=== PATIENT | male | born 1945 | race Caucasian/White ===

== ENCOUNTER → 2019-08-08 14:13 | Outpatient (CLI) | payer MEDICARE ==
[~2019-08-08 14:13] MED LIST: HYDROXYCHLOROQUINE; TRIAMTERENE-HC1 EAC6 PO; VERIPRED 220 MG/5 ML PO; [UNRECOGNIZED DRUG - OTHER]
[2019-08-16 08:22] VITALS: BMI 27.0
== END | disposition home or self-care (01) ==
LOC: D.RAD 14:13
PROVIDERS: ATTEND Internal Medicine Hematology & Oncology
DX: D47.2 Monoclonal gammopathy (principal)

== ENCOUNTER 2019-08-16 06:14 | Outpatient (CLI) | payer MEDICARE ==
[~2019-08-16] VITALS: Ht 175.3 cm; Wt 83.2 kg
[2019-08-16 06:53] LABS: BASOPHILS 0.4 % (0-2); EOSINOPHILS 6.1 % (0-7); HEMATOCRIT 41.5 % (42.0-54.0); HEMOGLOBIN 14.1 g/dL (13.5-17.5); IMMATURE GRANULOCYTES 0.3 % (0-5); LYMPHOCYTES 15.4 % (15-50); MCH 29.8 pg (26.0-34.0); MCV 87.7 fL (80.0-100.0); MEAN PLATELET VOLUME 10.4 fL (7.4-10.4); MONOCYTES 11.6 % (2-11); NEUTROPHILS 66.2 % (40-80); PLATELET COUNT 237 10x3/uL (130-400); RBC 4.73 10x6/uL (4.20-6.10); RDW 15.2 % (11.5-14.5); WBC 7.4 10x3/uL (4.8-10.8)
[2019-08-16 07:06] LABS: APTT 34.1 SECONDS (22.8-39.4); INR 1.07 (0.85-1.17); PROTIME 13.4 SECONDS (11.6-15.0)
[2019-08-16 07:31] LABS: CALCIUM 8.6 mg/dL (8.5-10.1); CARBON DIOXIDE 34.6 mmol/L (21.0-32.0); CREATININE - SERUM 1.3 mg/dL (0.6-1.3); POTASSIUM - SERUM 3.6 mmol/L (3.5-5.1)
[2019-08-16] MEDS ORDERED: VERIPRED 220 MG/5 ML PO (07:55)
[2019-08-16] MEDS ORDERED: HYDROXYCHLOROQUINE (07:57)
[2019-08-16] MEDS ORDERED: TRIAMTERENE-HC1 EAC6 PO (07:58)
[2019-08-16] MEDS ORDERED: [UNRECOGNIZED DRUG - OTHER] (07:59)
[2019-08-16 08:22] VITALS: BP 123/68; Ht 175.3 cm; Wt 83.2 kg
--- NOTE | 2019-08-16 10:44 | NUR ---
1010 SEE POST PROCEDURE CHECKLIST FOR VITAL SIGN TRENDS. COLA AND WATER SERVED TIME FRAME FOR RELEASE GIVEN AT SIDE.
== END 2019-08-16 12:00 | disposition home or self-care (01) ==
LOC: D.CT 06:14
PROVIDERS: Specialist; ATTEND Internal Medicine Hematology & Oncology
DX: D47.2 Monoclonal gammopathy (principal)

== ENCOUNTER → 2019-10-02 13:25 | Outpatient (CLI) | payer MEDICARE ==
[2019-08-16 08:22] VITALS: BMI 27.0
[~2019-10-02 13:25] MED LIST changes: +CLEOCIN HCL300 MG PO
== END | disposition home or self-care (01) ==
LOC: D.CT 13:25
PROVIDERS: ATTEND Internal Medicine Hematology & Oncology
DX: C90.00 Multiple myeloma not having achieved remission (principal); D41.01 Neoplasm of uncertain behavior of right kidney

== ENCOUNTER 2019-10-23 06:46 | Outpatient (CLI) | payer MEDICARE ==
[~2019-10-23] VITALS: Ht 175.3 cm; Wt 81.4 kg
[~2019-10-23 06:46] MED LIST changes: -CLEOCIN HCL300 MG PO
[2019-10-23 07:51] LABS: ANION GAP 9.3 mmol/L (8-16); CARBON DIOXIDE 31.7 mmol/L (21.0-32.0); CREATININE - SERUM 1.1 mg/dL (0.6-1.3)
[2019-10-23] MEDS ORDERED: CLEOCIN HCL300 MG PO (07:57)
[2019-10-23 08:01] LABS: BASOPHILS 0.6 % (0-2); EOSINOPHILS 10.2 % (0-7); HEMATOCRIT 42.9 % (42.0-54.0); HEMOGLOBIN 13.7 g/dL (13.5-17.5); IMMATURE GRANULOCYTES 0.3 % (0-5); LYMPHOCYTES 20.7 % (15-50); MCH 29.3 pg (26.0-34.0); MCHC 31.9 g/dL (31.0-37.0); MCV 91.7 fL (80.0-100.0); MONOCYTES 10.8 % (2-11); NEUTROPHILS 57.4 % (40-80); RBC 4.68 10x6/uL (4.20-6.10); RDW 15.3 % (11.5-14.5); WBC 6.6 10x3/uL (4.8-10.8)
[2019-10-23 08:04] VITALS: BP 145/80; Ht 175.3 cm; Wt 81.4 kg
[2019-10-23 08:10] LABS: INR 1.1 (0.85-1.17); PROTIME 13.7 SECONDS (11.6-15.0)
[2019-10-23 08:20] LABS: PLATELET COUNT 302 10x3/uL (130-400)
--- NOTE | 2019-10-23 11:19 | NUR ---
1117 SEE POST VITAL SIGN PROCEDURE CHECKLIST FOR VITAL SIGN TRENDS
--- NOTE | 2019-10-23 12:00 | NUR ---
1200 JYOTI GALVEZ RN ROUNDS ON PT.
== END 2019-10-23 15:15 | disposition home or self-care (01) ==
LOC: D.RAD 06:46
PROVIDERS: General Practice; ATTEND Internal Medicine Hematology & Oncology
DX: D41.01 Neoplasm of uncertain behavior of right kidney (principal)

== ENCOUNTER → 2019-12-06 13:56 | Outpatient (CLI) | payer MEDICARE ==
[2019-10-23 08:04] VITALS: BMI 26.5
[~2019-12-06 13:56] MED LIST changes: +CLEOCIN HCL300 MG PO
== END | disposition home or self-care (01) ==
LOC: D.LABREF 13:56
PROVIDERS: ATTEND Urology
DX: R31.9 Hematuria, unspecified (principal)